=== PATIENT | female | born 1955 | race Caucasian/White ===

== ENCOUNTER 2020-10-02 05:33 | Day surgery (SDC) | payer BC ==
[2020-10-02] MEDS ORDERED: Dextrose 5%-Lactated Ringers 1,000 ML IV SCH (06:45)
[2020-10-02] MEDS ORDERED: fentaNYL 100 MCG/2 ML SDV ONE (07:14)
[2020-10-02] MEDS ORDERED: Midazolam 1 MG/ML 2 ML SDV ONE (07:14)
[2020-10-02] MEDS ORDERED: Propofol 200 MG/20 ML SDV ONE (07:14)
[2020-10-02] MEDS ORDERED: Iopamidol 612 MG/ML 500 ML Multipack Bottle IV ONE (08:23)
[2020-10-02] MEDS ORDERED: Sodium Chloride 0.9% 10 ML Syringe FLUSH ONE (08:23)
[2020-10-02] MEDS ORDERED: Iopamidol 612 MG/ML 50 ML SDV PO ONE (08:23)
[2020-10-02] MEDS ORDERED: Sodium Chloride 0.9% 71 ML IV SCH (08:30)
[2020-10-02 10:29] VITALS: BP 113/49; PULSE 63
--- NOTE | 2020-10-02 10:52 | CT ---
Abdomen Pelvis w Cont CLINICAL HISTORY: Abdominal pain, anemia COMPARISON: None available. TECHNIQUE: Axial tomographic images are obtained from the dome of the diaphragm to the pubic symphysis with IV contrast enhancement. Oral contrast was used. The dosage reduction and iterative reconstruction techniques employed. FINDINGS: The lung bases are free of mass or infiltrate. There is a 4.5 x 5.9 x 3.8 cm homogeneous fluid attenuation mass on the medial right hemidiaphragm extending to the diaphragmatic shubham. It is well demarcated. It abuts the IVC and esophagus. This is most likely a benign cyst.. There has been previous gastric surgery most likely a Yessenia procedure. The liver shows no mass or biliary dilatation. The gallbladder has a normal appearance. The spleen has a normal size and shape. The pancreas shows no mass or inflammatory change. The adrenal glands appear normal bilaterally. There is a 2.9 x 2.9 x 3.5 cm parapelvic cyst in the right kidney. There are some smaller parapelvic cysts in the left kidney. Ureters have a normal course and caliber. The bladder is mildly distended. The aorta shows atheromatous plaque without aneurysm. There is no suspicious retroperitoneal adenopathy. The small intestinal configuration is nonacute. There is gas and feces throughout the colon. The appendix is not definitively identified. Abdominal pelvic fat planes are well demarcated. IMPRESSION: 4.5 x 5.9 x 3.8 cm cystic focus on the medial right hemidiaphragm. This may represent a pericardial cyst. This was also seen on an ultrasound in 2015 Previous Yessenia procedure. 2.9 x 2.9 x 3.5 cm parapelvic cyst right kidney No mass, suspicious adenopathy or inflammatory change identified MTDD
--- NOTE | 2020-10-08 21:39 | OR ---
DATE OF PROCEDURE: 10/02/2020 SURGEON: Nacho Ceils MD PREOPERATIVE DIAGNOSES: 1. History of Baker esophagus. 2. Mid abdominal pain with microcytic anemia. POSTOPERATIVE DIAGNOSES: 1. History of Baker esophagus with minimal inflammation at esophagogastric junction. 2. Intact Yessenia fundoplication. OPERATIVE PROCEDURES: Esophagogastroduodenoscopy with biopsy of esophagogastric junction for histologic evaluation. ANESTHESIA: IV sedation. INDICATION FOR PROCEDURE: This is a 65-year-old presenting for followup upper endoscopy for Baker esophagus. She is status post Yessenia fundoplication, presently she is on omeprazole 40 mg daily and has generally good symptom control from her reflux standpoint. She has been noted recently to have some microcytic anemia and some more of a mid abdominal pain, particularly in the postprandial period. The plan is to proceed with upper GI endoscopy with surveillance biopsies of the area of Baker esophagus and other procedures as indicated. Potential risks including bleeding and perforation were discussed, and the patient wishes to proceed. DETAILS OF PROCEDURE: The patient was taken to the operating room and placed in a left lateral decubitus position, IV sedation was administered, after which the upper GI endoscope was passed orally through the length of the esophagus and the stomach, with retroflexion view of the fundus, thereafter through the pyloric channel into the junction of the 3rd and 4th portions of duodenum. Findings included normal hypopharynx, larynx, upper esophageal sphincter, esophageal body. At the EG junction there was minimal inflammation. There was some upward extension of the gastroesophageal junction mucosal line consistent with Baker esophagus. There was no plaquing or stricturing or other signs of neoplasia. Remainder of the gastric and duodenal exams were otherwise unremarkable. At this point, biopsies were obtained from the area of the Baker esophagus i.e., the columnar mucosal areas above the upper gastric folds, minimal bleeding from the biopsy sites was seen, and the procedure was then concluded. Given the patient's mid abdominal discomfort, we will obtain a CT scan of the abdomen and pelvis and then otherwise continue the present medical management. She should have a followup upper endoscopy for surveillance of the Baker esophagus in 2 years assuming no progression towards dysplasia is seen on today's biopsies. Otherwise, she will be following up with Dr. Maradiaga in [facility] in roughly 2 weeks. Nacho Celis MD /[id number]
== END 2020-10-02 10:30 | disposition home or self-care (01) ==
LOC: JP.SDS 05:33
PROVIDERS: ATTEND Surgery
DX: K29.50 Unspecified chronic gastritis without bleeding (principal); D50.9 Iron deficiency anemia, unspecified; I10 Essential (primary) hypertension; Z98.84 Bariatric surgery status; Z87.19 Personal history of other diseases of the digestive system; Z88.8 Allergy status to other drugs, medicaments and biological substances; Z88.5 Allergy status to narcotic agent
CPT/HCPCS: 43239; 74177; 88305; J2250; J2704; J3010; J7121; Q9967

== ENCOUNTER 2022-10-15 06:00 | Day surgery (SDC) | payer MEDICARE, BC ==
[2022-10-15] MEDS ORDERED: Dextrose 5%-Lactated Ringers 1,000 ML IV SCH (06:30)
[2022-10-15] MEDS ORDERED: Propofol 200 MG/20 ML SDV ONE (06:53)
[2022-10-15] MEDS ORDERED: Glycopyrrolate 0.2 MG/ML 2 ML SDV IVPUSH ONE (07:15)
[2022-10-15 08:30] VITALS: BP 153/76; PULSE 81
== END 2022-10-15 08:46 | disposition home or self-care (01) ==
LOC: JP.SDS 06:00
PROVIDERS: ATTEND Surgery
DX: K29.60 Other gastritis without bleeding (principal); K20.90 Esophagitis, unspecified without bleeding; K44.9 Diaphragmatic hernia without obstruction or gangrene; I10 Essential (primary) hypertension; E78.00 Pure hypercholesterolemia, unspecified; Z79.899 Other long term (current) drug therapy; Z88.6 Allergy status to analgesic agent; Z88.1 Allergy status to other antibiotic agents; Z88.8 Allergy status to other drugs, medicaments and biological substances
CPT/HCPCS: 43239; 87081; 88305; J2704; J3490; J7121

== ENCOUNTER 2023-10-31 06:54 | Day surgery (SDC) | payer MEDICARE, BC ==
[2023-10-31] MEDS ORDERED: Midazolam 1 MG/ML 2 ML SDV ONE (07:15)
[2023-10-31] MEDS ORDERED: fentaNYL 50 MCG/ML SDV ONE (07:15)
[2023-10-31] MEDS ORDERED: Propofol 200 MG/20 ML SDV ONE ×2 (07:16→08:15)
[2023-10-31] MEDS ORDERED: Lactated Ringers 1,000 ML IV SCH (08:15)
[2023-10-31 09:32] VITALS: BP 145/70; PULSE 65
== END 2023-10-31 09:41 | disposition home or self-care (01) ==
LOC: JP.SDS 06:54
PROVIDERS: ATTEND Student in an Organized Health Care Education/Training Program
DX: K62.1 Rectal polyp (principal); K63.5 Polyp of colon; K57.90 Diverticulosis of intestine, part unspecified, without perforation or abscess without bleeding; J43.9 Emphysema, unspecified; E78.5 Hyperlipidemia, unspecified; F17.200 Nicotine dependence, unspecified, uncomplicated
CPT/HCPCS: 45380; 88305; J2250; J2704; J3010; J7120